=== PATIENT | female | born 1975 | race Caucasian/White ===

== ENCOUNTER → 2021-11-04 | Outpatient (CLI) | payer OTHER | LOC: M WHC 16:00 | PROVIDERS: ATTEND Student in an Organized Health Care Education/Training Program | DX: Z12.31 Encounter for screening mammogram for malignant neoplasm of breast (principal) ==

== ENCOUNTER → 2022-02-06 | Outpatient (CLI) | payer OTHER | LOC: M RAD 13:11 | PROVIDERS: ATTEND Student in an Organized Health Care Education/Training Program | DX: J40 Bronchitis, not specified as acute or chronic (principal) ==

== ENCOUNTER → 2022-02-10 | Outpatient (CLI) | payer OTHER | LOC: M LAB 08:13 | PROVIDERS: ATTEND Surgery | DX: R73.03 Prediabetes (principal) ==

== ENCOUNTER 2022-11-02 15:26 | Outpatient (RCR) | payer OTHER | END 2022-11-24 | LOC: M PT 15:26 | PROVIDERS: ATTEND Orthopaedic Surgery | DX: M25.512 Pain in left shoulder (principal) ==

== ENCOUNTER → 2022-11-24 | Outpatient (CLI) | payer OTHER | LOC: M WHC 15:05 | PROVIDERS: ATTEND Student in an Organized Health Care Education/Training Program | DX: N64.4 Mastodynia (principal) ==

== ENCOUNTER 2022-12-23 16:00 | Outpatient (RCR) | payer OTHER | END 2022-12-25 | LOC: M PT 16:00 | PROVIDERS: ATTEND Orthopaedic Surgery | DX: M25.512 Pain in left shoulder (principal) ==

== ENCOUNTER → 2023-01-22 | Outpatient (CLI) | payer OTHER | LOC: M PLARAD 15:43 | PROVIDERS: ATTEND Orthopaedic Surgery | DX: M19.012 Primary osteoarthritis, left shoulder (principal); M75.52 Bursitis of left shoulder ==